=== PATIENT | female | born 1935 | race Caucasian/White ===

== ENCOUNTER 2018-07-24 20:05 | Inpatient (IN) ==
[2018-07-24] MEDS ORDERED: Ondansetron ODT 4 MG TAB.RAPDIS SL ONE (20:37)
[2018-07-24] MEDS ORDERED: Isovue-370 500 ML BOTTLE IVP ONE (20:39)
--- NOTE | 2018-07-24 21:17 | Emergency Department Note ---
Disposition Clinical Impression: Partial small bowel obstruction, Hyperkalemia Disposition: Admitted As Inpatient Condition: Fair Time of Disposition: 00:36 General Adult HPI - General Chief complaint: ED Nausea/Vomiting/Diarrhea Stated complaint: Vomiting Time Seen by Provider: 07/24/18 20:31 Source: patient, EMS Mode of arrival: EMS Limitations: no limitations Nursing Notes Reviewed: Yes Vital Signs Reviewed: Yes - History of Present Illness HPI Narrative: Pt is an 82F resident of a SNF for chronic pain that presents with acute development of nausea and vomiting since yesterday. She states that she has had these symptoms since last night. She states she has vomited approximately 10-20 times, but denies any presence of blood in her vomit, although she states that it is dark. She currently has a colostomy, which she has had since 1988, and states that there has been no change in the output from her colostomy. She states that her last episode of vomiting was this morning. She is denying fevers, chills, abdominal pain, numbess, tingling, weakness. Pain Scale: 7 - Related Data Home Medications Medication Instructions Recorded Confirmed RX: Ascorbate Calcium [Vitamin C] 500 mg PO BID 12/24/16 07/25/18 RX: Calcium Carbonate/Vitamin D3 1 each PO DAILY 12/24/16 07/25/18 [Calcium 600 + Vit D Tablet] RX: Cranberry 450 mg PO QID 12/24/16 07/25/18 RX: Cyclosporine [Restasis] 1 each OP BID 12/24/16 07/25/18 RX: FentaNYL PATCH [Duragesic] 75 mcg TD Q72H 12/24/16 07/25/18 RX: Fluticasone Propionate 50 mcg IH DAILY 12/24/16 07/25/18 [Flovent Diskus] RX: HYDROmorphone [Dilaudid] 4 mg PO Q8H PRN 12/24/16 07/25/18 RX: Isosorbide MONOnitrate (24 HR) 90 mg PO DAILY 12/24/16 07/25/18 [Imdur] RX: Levothyroxine [Synthroid] 75 mcg PO 0630 12/24/16 07/25/18 RX: Losartan Potassium [Cozaar] 100 mg PO DAILY 12/24/16 07/25/18 RX: Omeprazole [PriLOSEC] 20 mg PO DAILY 12/24/16 07/25/18 RX: Potassium Chloride [Klor-Con 2 cap PO BID 12/24/16 07/25/18 10] RX: Pravastatin Sodium [Pravachol] 40 mg PO DAILY 12/24/16 07/25/18 RX: Vitamin E Acetate [Vitamin E] 1,000 unit PO DAILY 12/24/16 07/25/18 RX: cloNIDine HCl [CloNIDine HCl] 0.1 mg PO TID PRN 07/25/18 07/25/18 RX: hydrALAZINE [HydrALAZINE] 25 mg PO BID 07/25/18 07/25/18 Allergies Allergy/AdvReac Type Severity Reaction Status Date / Time aspirin Allergy Nausea Verified 11/29/16 01:48 Erythromycin Base Allergy Rash Verified 11/29/16 01:48 Penicillins Allergy Redness of Verified 11/29/16 01:48 Skin propoxyphene [From Darvon] Allergy Hallucinati Verified 11/29/16 01:48 ng Sulfa (Sulfonamide Allergy Redness of Verified 11/29/16 01:48 Antibiotics) Skin Constitutional: Denies: fever, chills Cardiovascular: Denies: chest pain, palpitations Respiratory: Denies: cough, dyspnea, wheezes Gastrointestinal: Reports: nausea, vomiting. Denies: abdominal pain, diarrhea, constipation Genitourinary: Denies: urgency, dysuria Musculoskeletal: Reports: neck pain (chronic). Denies: back pain Integumentary: Denies: rash, abrasion Neurological: Denies: headache, weakness Psychiatric: Denies: anxiety, depression Endocrine: Denies: fatigue, heat or cold intolerance Hematological/Lymphatic: Denies: easy bleeding, easy bruising Allergic/Immunologic: Denies: facial swelling, urticaria Past Medical History - Past Medical History Medical history: Reports: arthritis, cancer, CHF, coronary artery disease, GERD, hyperlipidemia, hypertension, liver disease, thyroid disease Surgical history: Reports: pacemaker/AICD Psychiatric history: Reports: no psych history DENTAL HYGIENE INSTRUCTOR history: Reports: no DENTAL HYGIENE INSTRUCTOR history - Social History Smoking Status: Never smoker Smokeless Tobacco Status: No Alcohol use: Reports: none Drug use: Reports: none Physical Exam General: A&O x 3. No acute distress. Well developed, well nourished. Head: atraumatic, normocephalic. ENT: No conjunctival injection, no scleral icterus. PERRLA. EOMI. Oropharynx non- erythematous. mucous membranes moist. Neuro: No focal deficits, no speech deficit, no facial droop, mentating well. BUE/BLE Str 5/5. Pulm: Lungs CTAB A/P. No wheezes, rales, ronchi. Cardio: RRR no m/r/g. Chest not tender to palpation. Abd: Colostomy bag in place on left side of abdomen. Abd soft, diffusely tender, but not rigid. No guarding. Normoactive bowel sounds. Extremities: Radial pulses 2+ laurita, dorsalis pedis/posterior tibialis 2+ laurita. No LE edema. No cyanosis, clubbing. Skin: warm, dry, intact. No rashes. Psych: Appropriate mood and affect. Answers questions appropriately. Cooperative with exam. - General Limitations: no limitations General appearance: alert, in no apparent distress Course Course Narrative: Will administer anti-emetic, obtain labs, obtain CT scan. - Reevaluation(s) Reevaluation #1: Potassium elevated at 5.8, but no EKG changes consistent with hyperkalemia. Time: 23:50 Vital Signs Temperature 99.0 F 07/24/18 20:31 Pulse Rate 78 07/24/18 20:31 Respiratory Rate 18 07/24/18 20:31 Blood Pressure 213/86 07/24/18 20:31 O2 Sat by Pulse Oximetry 98 07/24/18 20:31 Temperature 99.0 F 07/24/18 20:31 Pulse Rate 78 07/25/18 00:32 Respiratory Rate 16 07/25/18 00:32 Blood Pressure 178/79 07/25/18 00:32 O2 Sat by Pulse Oximetry 96 07/25/18 00:32 Oxygen Delivery Oxygen Delivery Room Air Medical Decision Making - MDM Narrative Medical decision making narrative: Pts lab work was concerning for hyperkalemia, but no EKG changes were noted consistent with hyperkalemia. CT showed concern for partial small bowel obstruction, so pt was admitted to hospitalist, Dr. Bland, for hyperkalemia and partial SBO. Pt was given 1L NaCl and albuterol in the department to help manage her potassium level with repeat BMP pending at time of disposition. Pt verbalized understanding and agreement with the plan to admit her. Pt was given an opportunity to ask questions and all of her concerns were addressed. Pt remained stable while in the department. - Medical Records Medical records reviewed: Yes I reviewed the patient's medical records. - Lab Data Lab results reviewed: Yes I reviewed the patient's lab results. Result diagrams: 07/24/18 22:14 07/25/18 00:28 Lab Results 07/24/18 07/24/18 07/24/18 Range/Units 21:04 21:04 21:47 WBC (4.3-11.1) K/mcL RBC (3.82-4.97) M/mcL Hgb (11.5-15.4) g/dL Hct (35.3-44.9) % MCV (83.0-100.0) fL MCH (28.0-33.3) pg MCHC (31.6-35.5) g/dL RDW (11.5-14.5) % Plt Count (140-400) K/mcL MPV (9.4-12.4) fL Immature Gran % (0-4) % Seg Neutrophils % % Lymphocytes % % Monocytes % % Eosinophils % % Basophils % % Neutrophils # (1.6-8.9) K/mcL Lymphocytes # (0.6-4.6) K/mcL Monocytes # (0.0-1.3) K/mcL Eosinophils # (0.0-0.6) K/mcL Basophils # (0.0-0.2) K/mcL Sodium 137 (136-145) mEq/L Potassium 5.8 H (3.5-5.1) mEq/L Chloride 104 (98-107) mEq/L Carbon Dioxide 24 (23-29) mEq/L BUN 23 (8-23) mg/dL Creatinine 1.12 (0.60-1.20) mg/dL Est GFR ( Amer) 56 L (> 60) Est GFR (Non-Af Amer) 46 L (> 60) BUN/Creatinine Ratio 21 (6-26) Glucose 146 H (70-105) mg/dL Calculated Osmolality 290 (280-300) Calcium 9.8 (8.6-10.3) mg/dL Total Bilirubin 0.7 (0.3-1.0) mg/dL AST 37 (13-39) Units/L ALT 15 (7-52) Units/L Alkaline Phosphatase 95 (34-104) Units/L Serum Total Protein 7.7 (6.4-8.9) g/dL Albumin 4.3 (3.5-5.7) g/dL Globulin 3.4 (2.4-3.5) g/dL Albumin/Globulin Ratio 1.3 (1.1-2.2) Lipase 5 L (11-82) Units/L Urine Color Yellow (Yellow) Urine Clarity Clear (Clear) Urine pH 6.0 (5.0-8.0) pH Units Ur Specific [place] 1.018 (1.010-1.025) Urine Protein Trace (Neg-Trace) mg/dL Urine Glucose (UA) Normal (Normal) mg/dL Urine Ketones Trace H (Negative) mg/dL Urine Blood Trace H (Negative) Urine Nitrite Negative (Negative) Urine Bilirubin Negative (Negative) Urine Urobilinogen Normal (Normal) mg/dL Ur Leukocyte Esterase Negative (Negative) Urine Microscopic RBC 5-15 H (0-3) per hpf Urine Microscopic WBC 0-3 (0-3) per hpf Ur Squamous Epith Cells Few (None-Few) per lpf Urine Bacteria None Seen (None-Few) per hpf Hyaline Casts None Seen (None-Few) per lpf Ur Culture Indicated? NO (NO) Specimen Rejected Clotted 07/24/18 Range/Units 22:14 WBC 5.0 (4.3-11.1) K/mcL RBC 4.70 (3.82-4.97) M/mcL Hgb 13.9 (11.5-15.4) g/dL Hct 42.3 (35.3-44.9) % MCV 90.0 (83.0-100.0) fL MCH 29.6 (28.0-33.3) pg MCHC 32.9 (31.6-35.5) g/dL RDW 13.2 (11.5-14.5) % Plt Count 143 (140-400) K/mcL MPV 10.4 (9.4-12.4) fL Immature Gran % 0.2 (0-4) % Seg Neutrophils % 86.2 % Lymphocytes % 7.2 % Monocytes % 6.2 % Eosinophils % 0.0 % Basophils % 0.2 % Neutrophils # 4.3 (1.6-8.9) K/mcL Lymphocytes # 0.4 L (0.6-4.6) K/mcL Monocytes # 0.3 (0.0-1.3) K/mcL Eosinophils # 0.0 (0.0-0.6) K/mcL Basophils # 0.0 (0.0-0.2) K/mcL Sodium (136-145) mEq/L Potassium (3.5-5.1) mEq/L Chloride (98-107) mEq/L Carbon Dioxide (23-29) mEq/L BUN (8-23) mg/dL Creatinine (0.60-1.20) mg/dL Est GFR ( Amer) (> 60) Est GFR (Non-Af Amer) (> 60) BUN/Creatinine Ratio (6-26) Glucose (70-105) mg/dL Calculated Osmolality (280-300) Calcium (8.6-10.3) mg/dL Total Bilirubin (0.3-1.0) mg/dL AST (13-39) Units/L ALT (7-52) Units/L Alkaline Phosphatase (34-104) Units/L Serum Total Protein (6.4-8.9) g/dL Albumin (3.5-5.7) g/dL Globulin (2.4-3.5) g/dL Albumin/Globulin Ratio (1.1-2.2) Lipase (11-82) Units/L Urine Color (Yellow) Urine Clarity (Clear) Urine pH (5.0-8.0) pH Units Ur Specific [place] (1.010-1.025) Urine Protein (Neg-Trace) mg/dL Urine Glucose (UA) (Normal) mg/dL Urine Ketones (Negative) mg/dL Urine Blood (Negative) Urine Nitrite (Negative) Urine Bilirubin (Negative) Urine Urobilinogen (Normal) mg/dL Ur Leukocyte Esterase (Negative) Urine Microscopic RBC (0-3) per hpf Urine Microscopic WBC (0-3) per hpf Ur Squamous Epith Cells (None-Few) per lpf Urine Bacteria (None-Few) per hpf Hyaline Casts (None-Few) per lpf Ur Culture Indicated? (NO) Specimen Rejected - Radiology Data Radiology results reviewed: Yes I reviewed the patient's radiology results. Abdomen/Pelvis CT 07/24/18 20:39 IMPRESSION: Mild to moderate dilation of the small bowel suspicious for partial small bowel obstruction likely related to adhesions Left lower quadrant colostomy and sigmoid colon resection are again noted Cholecystectomy D/ / Marek Poole MD / Marek Poole MD Interpreting Provider: Marek Poole MD - EKG Data EKG #1 EKG attestation: Yes I reviewed and interpreted this EKG. EKG results narrative: HR 84, rhythm atrial paced, axis left. ID [id number], QRS 95, QTc 476. No evidence of ST elevation or depression. No evidence of peaked T-waves. No evidence of QRS lengthening. Left axis deviation also on previous study from 11/28/16. Attestation Statement - Attestation Attestation: Resident Attestation: I examined this patient and my medical decision making was reviewed with the Resident Physician. I agree with the documented findings, disposition and treatment plan as described except to the extent set forth below. We independently had [id number] contact with the patient. Patient with multiple abdominal surgeries in the past including cholecystectomy, hysterectomy, colostomy, appendectomy presenting for evaluation of what she describes 20 episodes of vomiting. The patient will undergo further evaluation for underlying abdominal pathology. Overall abdomen is soft nontender palpation without guarding or rebound. Patient CT scan concerning for partial small bowel obstruction. Patient received initial sublingual Zofran has had no further episodes of vomiting. Further Zofran will be given. I do not believe an NG tube needs to be placed at this time. Patient's symptoms worsen and NG tube can be placed for symptom relief however currently under control.
[2018-07-24 21:44] LABS: Albumin 4.3 g/dL (3.5-5.7); Albumin/Globulin Ratio 1.3 (1.1-2.2); Bilirubin,Total 0.7 mg/dL (0.3-1.0); Calcium 9.8 mg/dL (8.6-10.3); Globulin 3.4 g/dL (2.4-3.5); Potassium 5.8 mEq/L (3.5-5.1); Total Protein 7.7 g/dL (6.4-8.9)
[2018-07-24 22:01] LABS: Bilirubin,Urine Negative (Negative); Blood,Urine Trace (Negative); Clarity,Urine Clear (Clear); Color,Urine Yellow (Yellow); Glucose,Urine (UA) Normal (Normal); Ketones,Urine Trace mg/dL (Negative); Leukocyte Esterase,Urine Negative (Negative); Nitrite,Urine Negative (Negative); Protein,Urine Trace mg/dL (Neg-Trace); Specific Gravity,Urine 1.018 (1.010-1.025); Urobilinogen,Urine Normal (Normal)
[2018-07-24 22:04] LABS: Bacteria,Urine None Seen per hpf (None-Few); Hyaline Casts,Urine None Seen per lpf (None-Few); Squamous Epithelial Cell,Urine Few per lpf (None-Few); WBC,Urine 0-3 per hpf (0-3)
[2018-07-24 22:34] LABS: Basophils % 0.2 %; Hematocrit 42.3 % (35.3-44.9); Hemoglobin 13.9 g/dL (11.5-15.4); Immature Granulocytes % 0.2 % (0-4); Lymphocytes # 0.4 K/mcL (0.6-4.6); Lymphocytes % 7.2 %; Mean Corpuscular HGB Conc 32.9 g/dL (31.6-35.5); Mean Corpuscular Hemoglobin 29.6 pg (28.0-33.3); Mean Platelet Volume 10.4 fL (9.4-12.4); Monocytes # 0.3 K/mcL (0.0-1.3); Monocytes % 6.2 %; Neutrophils # 4.3 K/mcL (1.6-8.9); Platelet Count 143 K/mcL (140-400); Red Cell Distribution Width 13.2 % (11.5-14.5); Segmented Neutrophils % 86.2 %
[2018-07-24] MEDS ORDERED: 0.9 % Sodium Chloride 1,000 ML IVC ONE (23:06)
[2018-07-25] MEDS ORDERED: Albuterol 2.5 MG/3 ML NEBULIZER IH ONE (00:09)
[2018-07-25] MEDS ORDERED: Ondansetron 4 MG/2 ML VIAL IVP ONE (00:35)
[2018-07-25 00:56] LABS: Calcium 9.1 mg/dL (8.6-10.3); Potassium 4.2 mEq/L (3.5-5.1)
--- NOTE | 2018-07-25 03:53 | Internal Med History&Physical ---
Date of Encounter: 07/25/18 Time of Encounter: 03:51 Internal Medicine - H&P: HPI History of present illness: Ms. Bolanos is a 82 year old female with a past medical history of hypertension, hyperlipidemia, history of colon cancer, hypothyroidism, chronic lower extremity edema, chronic abdominal pain history of blood clots who presented to the ED with a chief complaint of nausea and vomiting which began yesterday. Patient reports vomiting approximately 10-20 times consisting of nonbloody nonbilious emesis. Patient denies any fever or chills, abdominal pain, numbness tingling or weakness. On arrival patient was afebrile, however noted to be hypertensive with a blood pressure of 213/86. Labs were notable only for hyperkalemia 5.8. CT scan of the belly showed mild to moderate dilatation of the small bowel suspicious for partial small bowel obstruction likely related to adhesions. P atient received fluids and antibiotics in the ED. NG tube was not placed as patient's vomiting has seen to subside. Past Med Surg Social Fam HX - Past Medical History Medical history: arthritis, cancer, CHF, coronary artery disease, GERD, hyperlipidemia, hypertension, liver disease, thyroid disease Additional medical history: COLON CANCER Psychiatric history: no psych history - Past Surgical History Surgical History: pacemaker/AICD Additional surgical history: BACK SURGERY. EAR SURGERY. SHOULDER SURGERY - Social History Smoking Status: Never smoker Smokeless Tobacco Status: No Alcohol use: none Drug use: none - Family History Father Living Status: Hx Family Endocrine Disorder: Yes Internal Medicine - H&P: Meds Ascorbate Calcium [Vitamin C] 500 mg PO BID 12/24/16 [History] Calcium Carbonate/Vitamin D3 [Calcium 600 + Vit D Tablet] 1 each PO DAILY 12/24/16 [History] Cranberry 450 mg PO QID 12/24/16 [History] Cyclosporine [Restasis] 1 each OP BID 12/24/16 [History] FentaNYL PATCH [Duragesic] 75 mcg TD Q72H 12/24/16 [History] Fluticasone Propionate [Flovent Diskus] 50 mcg IH DAILY 12/24/16 [History] HYDROmorphone [Dilaudid] 4 mg PO Q8H PRN 12/24/16 [History] Isosorbide MONOnitrate (24 HR) [Imdur] 90 mg PO DAILY 12/24/16 [History] Levothyroxine [Synthroid] 75 mcg PO 0630 12/24/16 [History] Losartan Potassium [Cozaar] 100 mg PO DAILY 12/24/16 [History] Omeprazole [PriLOSEC] 20 mg PO DAILY 12/24/16 [History] Potassium Chloride [Klor-Con 10] 2 cap PO BID 12/24/16 [History] Pravastatin Sodium [Pravachol] 40 mg PO DAILY 12/24/16 [History] Vitamin E Acetate [Vitamin E] 1,000 unit PO DAILY 12/24/16 [History] cloNIDine HCl [CloNIDine HCl] 0.1 mg PO TID PRN 07/25/18 [History] hydrALAZINE [HydrALAZINE] 25 mg PO BID 07/25/18 [History] Allergy/AdvReac Type Severity Reaction Status Date / Time aspirin Allergy Nausea Verified 11/29/16 01:48 Erythromycin Base Allergy Rash Verified 11/29/16 01:48 Penicillins Allergy Redness of Verified 11/29/16 01:48 Skin propoxyphene [From Darvon] Allergy Hallucinati Verified 11/29/16 01:48 ng Sulfa (Sulfonamide Allergy Redness of Verified 11/29/16 01:48 Antibiotics) Skin All Systems PM: A 10-system review of systems was performed and is negative for pertinent findings except as documented above in the HPI. - Constitutional Constitutional: no chills, no fever(s), no night sweats - EENT Eyes: no change in vision, no discharge, no pain, no photophobia Ears: no ear discharge, no ear pain, no tinnitus Nose, mouth and throat: no dysphagia, no nasal discharge, no neck pain, no sore throat - Cardiovascular Cardiovascular ROS IM: no chest pain, no diaphoresis, no dyspnea, no lightheadedness, no palpitations, no syncope - Respiratory Respiratory: no cough, no dyspnea, no wheezing, no excessive phlegm production - Gastrointestinal Gastrointestinal: no abdominal pain, no diarrhea, no hematemesis, no hematochezia, no melena, no nausea, no vomiting - Genitourinary Genitourinary: no change in urinary stream, no dysuria, no flank pain, no he maturia - Musculoskeletal Musculoskeletal ROS IM: no numbness, no tingling - Integumentary Integumentary IM: no rash, no unusual bruising - Neurological Neurological ROS: no confusion, no convulsions, no focal weakness, no numbness, no tingling, no tremor(s) - Hematologic/Lymphatic Hematologic/Lymphatic: no easy bruising - Constitutional Vitals: Temp Pulse Resp BP Pulse Ox 98.7 F 89 14 185/78 96 07/25/18 02:06 07/25/18 02:06 07/25/18 02:06 07/25/18 02:06 07/25/18 02:06 Exam: General: Alert and oriented Skin:Normal color, no rash, no lesions. HEENT:EOM, pupils equal, round and reactive. Cardiovascular:Normal S1 & S2, no rubs, murmurs or gallops. No JVD. Pulse regular. Lungs:Normal breath sounds, no wheezes or crackles. Abdomen:Soft, non-tender, no rigidity. Extremities:No deformity, no edema or tenderness, no joint swelling or clubbing. Neurological:Normal cognition and motor skills. Pulses:Carotid and radial pulses normal +2. Rest of the physical exam is non contributory Internal Med - H&P Results - Labs CBC & Chem 7: 07/24/18 22:14 07/25/18 00:28 Labs: Short CBC 07/24/18 Range/Units 22:14 WBC 5.0 (4.3-11.1) K/mcL Hgb 13.9 (11.5-15.4) g/dL Hct 42.3 (35.3-44.9) % Plt Count 143 (140-400) K/mcL Neutrophils # 4.3 (1.6-8.9) K/mcL BMP 07/24/18 07/25/18 21:04 00:28 Sodium 137 140 Potassium 5.8 H 4.2 D Chloride 104 107 Carbon Dioxide 24 26 BUN 23 23 Creatinine 1.12 1.09 Glucose 146 H 135 H Calcium 9.8 9.1 Liver Function 07/24/18 Range/Units 21:04 Total Bilirubin 0.7 (0.3-1.0) mg/dL AST 37 (13-39) Units/L ALT 15 (7-52) Units/L Alkaline Phosphatase 95 (34-104) Units/L Albumin 4.3 (3.5-5.7) g/dL Urine 07/24/18 Range/Units 21:47 Urine Color Yellow (Yellow) Urine Clarity Clear (Clear) Urine pH 6.0 (5.0-8.0) pH Units Ur Specific [place] 1.018 (1.010-1.025) Urine Protein Trace (Neg-Trace) mg/dL Urine Glucose (UA) Normal (Normal) mg/dL - Impressions ITS Impressions Abdomen/Pelvis CT 07/24/18 20:39 IMPRESSION: Mild to moderate dilation of the small bowel suspicious for partial small bowel obstruction likely related to adhesions Left lower quadrant colostomy and sigmoid colon resection are again noted Cholecystectomy D/ / Marek Poole MD / Marek Poole MD Interpreting Provider: Marek Poole MD - Assessment and Plan (1) Hyperkalemia Current Visit: Yes Status: Acute Assessment and plan: Patient presents with some potassium of 5.8. Hyperkalemia seems to have resolved after receiving fluids. We will monitor for now. (2) Partial small bowel obstruction Current Visit: Yes Status: Acute Assessment and plan: Patient presents with intractable nausea and vomiting. CT scan shows mild to moderate dilatation of small bowel suspicious for partial obstruction likely related to adhesions. This in the setting of previous history of colon cancer status post colectomy. NG tube deferred as patient's vomiting appears so subsided. -We will keep patient nothing by mouth -We will consider placement of NG tube if patient's begins to vomit again -Surgery consult (3) DVT prophylaxis Current Visit: Yes Status: Acute Assessment and plan: subCutaneous heparin - Time Spent With Patient Total time spent is greater than 50% in coordination of care (as documented) at patient's floor/unit and/or counseling patient:
[2018-07-25] MEDS ORDERED: Naloxone 0.4 MG/ML INJ IVP PRN (04:02)
[2018-07-25] MEDS: Ondansetron 4 MG/2 ML VIAL IVP PRN (04:35)
[2018-07-25] MEDS: 0.9 % Sodium Chloride 1,000 ML IVC SCH ×2 (04:35→18:36)
[2018-07-25] MEDS: *HR* Heparin 5,000 UNIT/ML VIAL SQ SCH ×3 (05:55→20:43)
[2018-07-25] MEDS ORDERED: cloNIDine HCl 0.1 MG TABLET PO PRN (08:23)
--- NOTE | 2018-07-25 09:41 | Event Note ---
Date of Encounter: 07/25/18 Time of Encounter: 09:38 Patient seen and examined earlier this am Currently she cont to have abd pain and vomiting green Bile - NG was placed - dark green aprox 100ml in return . Surgery consulted appreciate recommendations
[2018-07-25] MEDS: hydrALAZINE 25 MG TABLET PO SCH ×2 (11:15→20:43)
[2018-07-25] MEDS: Isosorbide MONOnitrate (24 HR) 30 MG TAB.ER.24H PO SCH (11:16)
--- NOTE | 2018-07-25 12:38 | AcuteCare Surgery Consult Note ---
Date of Encounter: 07/25/18 Time of Encounter: 09:30 Assessment and Plan (1) Partial small bowel obstruction Current Visit: Yes Status: Acute Recommend conservative therapy with IVF/NGT/NPO. Will obtain gastrograffin SB series prior to advancing diet. (2) HTN (hypertension) Current Visit: No Status: Chronic stable, hospitalist to manage Qualifiers: Hypertension type: essential hypertension Qualified Code(s): I10 - Essential (primary) hypertension History of Present Illness Consult date: 07/25/18 Reason for consult: abdominal pain (nausea and vomiting) Requesting physician: Dameon Max History of present illness: This 82 y/o female presents to [facility] ED c/o intractible nausea and vomiting. She reports the n/v subsided when the NGT was placed. She reports abdominal pain but, not severe. She reports normal functioning of colostomy however, there is minimal stool and gas in colostomy bag, currently. She denies fever. She denies chest pain of SOB. Past Med Surg Social Fam HX - Past Medical History Medical history: arthritis, cancer, CHF, coronary artery disease, GERD, hyperlipidemia, hypertension, liver disease, thyroid disease Additional medical history: COLON CANCER Psychiatric history: no psych history - Past Surgical History Surgical History: pacemaker/AICD Additional surgical history: BACK SURGERY. EAR SURGERY. SHOULDER SURGERY - Social History Smoking Status: Never smoker Smokeless Tobacco Status: No Alcohol use: none Drug use: none - Family History Father Living Status: Hx Family Endocrine Disorder: Yes Medications and Allergies Ascorbate Calcium [Vitamin C] 500 mg PO BID 12/24/16 [History] Calcium Carbonate/Vitamin D3 [Calcium 600 + Vit D Tablet] 1 each PO DAILY 12/24/16 [History] Cranberry 450 mg PO QID 12/24/16 [History] Cyclosporine [Restasis] 1 each OP BID 12/24/16 [History] FentaNYL PATCH [Duragesic] 75 mcg TD Q72H 12/24/16 [History] Fluticasone Propionate [Flovent Diskus] 50 mcg IH DAILY 12/24/16 [History] HYDROmorphone [Dilaudid] 4 mg PO Q8H PRN 12/24/16 [History] Isosorbide MONOnitrate (24 HR) [Imdur] 90 mg PO DAILY 12/24/16 [History] Levothyroxine [Synthroid] 75 mcg PO 30 12/24/16 [History] Losartan Potassium [Cozaar] 100 mg PO DAILY 12/24/16 [History] Omeprazole [PriLOSEC] 20 mg PO DAILY 12/24/16 [History] Potassium Chloride [Klor-Con 10] 2 cap PO BID 12/24/16 [History] Pravastatin Sodium [Pravachol] 40 mg PO DAILY 12/24/16 [History] Vitamin E Acetate [Vitamin E] 1,000 unit PO DAILY 12/24/16 [History] cloNIDine HCl [CloNIDine HCl] 0.1 mg PO TID PRN 07/25/18 [History] hydrALAZINE [HydrALAZINE] 25 mg PO BID 07/25/18 [History] Allergy/AdvReac Type Severity Reaction Status Date / Time aspirin Allergy Nausea Verified 11/29/16 01:48 Erythromycin Base Allergy Rash Verified 11/29/16 01:48 Penicillins Allergy Redness of Verified 11/29/16 01:48 Skin propoxyphene [From Darvon] Allergy Hallucinati Verified 11/29/16 01:48 ng Sulfa (Sulfonamide Allergy Redness of Verified 11/29/16 01:48 Antibiotics) Skin Review of Systems All systems PM: The remainder of the systems were reviewed and are negative - Constitutional as per HPI, anorexia, fatigue, weakness, no chills, no fever(s), no night sweats - EENT Nose, mouth and throat: dry mouth, no dysphagia, no nasal congestion, no nasal discharge, no sinus pain, no sinus pressure, no sore throat - Cardiovascular no dyspnea, no edema - Respiratory no cough, no dyspnea, no wheezing - Gastrointestinal abdominal pain, bloating, cramping, nausea, vomiting, no belching, no change in stool character, no coffee ground emesis, no hematemesis, no hematochezia - Genitourinary Genitourinary: no difficulty voiding, no dysuria, no urinary frequency - Musculoskeletal back pain, no joint swelling, no limited range of motion, no neck pain - Integumentary dry skin, no pruritus, no rash, no wounds, no jaundice - Neurological weakness, no dizziness, no focal weakness - Endocrine fatigue - Hematologic/Lymphatic no easy bleeding, no easy bruising General Surgery Exam Initial Vital Signs Temp Pulse Resp BP Pulse Ox 99.0 F 78 18 213/86 98 07/24/18 20:31 07/24/18 20:31 07/24/18 20:31 07/24/18 20:31 07/24/18 20:31 - General physical appearance no distress, no pain. negative: jaundice - Eyes PERRL, normal ocular movement. negative: icteric - ENT no congestion, dry mucosa. negative: nasal discharge - Neck no masses, no lymphadectomy, no venous distension - Respiratory normal respiratory effort, clear to auscultation - Cardiovascular Cardiovascular exam: Present: RRR. Absent: murmurs - Abdomen Abdomen general surgery: Present: bowel sounds present (hypoactive), soft, dis tended, tender. Absent: guarding, rebound - Genitourinary Present: normal external genitalia - Integumentary Integumentary general surgery: Present: warm and dry. Absent: rash - Neurologic Present: CN 2-12 grossly intact, normal coordination - Musculoskeletal Present: normal posture - Psychiatric Psychiatric general surgery: Present: A&Ox3, appropriate Exam Initial Vital Signs Temp Pulse Resp BP Pulse Ox 99.0 F 78 18 213/86 98 07/24/18 20:31 07/24/18 20:31 07/24/18 20:31 07/24/18 20:31 07/24/18 20:31 Results - Labs 07/24/18 22:14 07/25/18 00:28 Abnormal lab results Lymphocytes # 0.4 K/mcL (0.6-4.6) L 07/24/18 22:14 Est GFR ( Amer) 58 (> 60) L 07/25/18 00:28 Est GFR (Non-Af Amer) 48 (> 60) L 07/25/18 00:28 Glucose 135 mg/dL (70-105) H 07/25/18 00:28 Lipase 5 Units/L (11-82) L 07/24/18 21:04 Urine Ketones Trace mg/dL (Negative) H 07/24/18 21:47 Urine Blood Trace (Negative) H 07/24/18 21:47 Urine Microscopic RBC 5-15 per hpf (0-3) H 07/24/18 21:47 Diabetes panel 07/24/18 07/25/18 Range/Units 21:04 00:28 Sodium 137 140 (136-145) mEq/L Potassium 5.8 H 4.2 D (3.5-5.1) mEq/L Chloride 104 107 (98-107) mEq/L Carbon Dioxide 24 26 (23-29) mEq/L BUN 23 23 (8-23) mg/dL Creatinine 1.12 1.09 (0.60-1.20) mg/dL Glucose 146 H 135 H (70-105) mg/dL Calcium 9.8 9.1 (8.6-10.3) mg/dL AST 37 (13-39) Units/L ALT 15 (7-52) Units/L Alkaline Phosphatase 95 (34-104) Units/L Albumin 4.3 (3.5-5.7) g/dL Calcium panel 07/24/18 07/25/18 Range/Units 21:04 00:28 Calcium 9.8 9.1 (8.6-10.3) mg/dL Albumin 4.3 (3.5-5.7) g/dL Pituitary panel 07/24/18 07/25/18 Range/Units 21:04 00:28 Sodium 137 140 (136-145) mEq/L Potassium 5.8 H 4.2 D (3.5-5.1) mEq/L Chloride 104 107 (98-107) mEq/L Carbon Dioxide 24 26 (23-29) mEq/L BUN 23 23 (8-23) mg/dL Creatinine 1.12 1.09 (0.60-1.20) mg/dL Glucose 146 H 135 H (70-105) mg/dL Calcium 9.8 9.1 (8.6-10.3) mg/dL Adrenal panel 07/24/18 07/25/18 Range/Units 21:04 00:28 Sodium 137 140 (136-145) mEq/L Potassium 5.8 H 4.2 D (3.5-5.1) mEq/L Chloride 104 107 (98-107) mEq/L Carbon Dioxide 24 26 (23-29) mEq/L BUN 23 23 (8-23) mg/dL Creatinine 1.12 1.09 (0.60-1.20) mg/dL Glucose 146 H 135 H (70-105) mg/dL Calcium 9.8 9.1 (8.6-10.3) mg/dL Total Bilirubin 0.7 (0.3-1.0) mg/dL AST 37 (13-39) Units/L ALT 15 (7-52) Units/L Alkaline Phosphatase 95 (34-104) Units/L Albumin 4.3 (3.5-5.7) g/dL All other labs normal. - Imaging CT scan - abdomen: image reviewed (Dilated SB) CT scan - pelvis: image reviewed Consult Discharge Plan - Plan Referrals: Yumiko Parra MD [Partnered Physician] -
[2018-07-25] MEDS ORDERED: Acetaminophen IV 1,000 MG/100 ML INFUS..BTL IVPB ONE (21:10)
[2018-07-26] MEDS: *HR* Heparin 5,000 UNIT/ML VIAL SQ SCH ×3 (04:41→20:35)
[2018-07-26 05:39] LABS: Basophils % 0.5 %; Eosinophils % 0.5 %; Hematocrit 35.8 % (35.3-44.9); Lymphocytes # 1.2 K/mcL (0.6-4.6); Lymphocytes % 30.3 %; Mean Corpuscular HGB Conc 32.7 g/dL (31.6-35.5); Mean Corpuscular Hemoglobin 29.6 pg (28.0-33.3); Mean Corpuscular Volume 90.6 fL (83.0-100.0); Mean Platelet Volume 9.7 fL (9.4-12.4); Monocytes # 0.5 K/mcL (0.0-1.3); Monocytes % 11.6 %; Neutrophils # 2.3 K/mcL (1.6-8.9); Platelet Count 122 K/mcL (140-400); Red Blood Count 3.95 M/mcL (3.82-4.97); Red Cell Distribution Width 13.4 % (11.5-14.5); Segmented Neutrophils % 57.1 %
[2018-07-26 05:42] LABS: Hemoglobin 11.7 g/dL (11.5-15.4)
[2018-07-26 05:49] LABS: INR 1.1; Prothrombin Time 12.7 Seconds (9.4-12.1)
[2018-07-26 05:53] LABS: Activated Partial Thrombo Time 28.4 Seconds (26.0-36.0)
[2018-07-26 05:58] LABS: Albumin 3.2 g/dL (3.5-5.7); Albumin/Globulin Ratio 1.2 (1.1-2.2); Bilirubin,Total 0.5 mg/dL (0.3-1.0); Calcium 8.7 mg/dL (8.6-10.3); Globulin 2.6 g/dL (2.4-3.5); Magnesium 1.8 mg/dL (1.6-2.6); Potassium 3.5 mEq/L (3.5-5.1); Total Protein 5.8 g/dL (6.4-8.9)
[2018-07-26] MEDS: hydrALAZINE 25 MG TABLET PO SCH ×2 (07:41→20:31)
[2018-07-26] MEDS: Isosorbide MONOnitrate (24 HR) 30 MG TAB.ER.24H PO SCH (07:42)
--- NOTE | 2018-07-26 09:37 | Internal Med Progress Note ---
Hospitalist Progress Note - Encounter Date of Encounter: 07/26/18 Time of Encounter: 09:37 - Subjective Interval History: Seen and examined at bedside Denies any pain or discomfort . NG draining dark fluid- denies any flatus- seen by surgery and appreciate recommendations - Exam Vitals: Temp Pulse Resp BP Pulse Ox 98.2 F 67 16 187/75 97 07/26/18 07:16 07/26/18 07:16 07/26/18 07:16 07/26/18 07:16 07/26/18 07:16 Exam: General: Alert and oriented Skin:Normal color, no rash, no lesions. HEENT:EOM, pupils equal, round and reactive. Cardiovascular:Normal S1 & S2, no rubs, murmurs or gallops. No JVD. Pulse regular. Lungs:Normal breath sounds, no wheezes or crackles. Abdomen:Soft, non-tender, no rigidity. NG placed with dark drainage Extremities:No deformity, no edema or tenderness, no joint swelling or clubbing. Neurological:Normal cognition and motor skills. Pulses:Carotid and radial pulses normal +2. Rest of the physical exam is non contributory - Assessment and Plan (1) Partial small bowel obstruction Current Visit: Yes Status: Acute Assessment and Plan: Patient presents with intractable nausea and vomiting. CT scan shows mild to moderate dilatation of small bowel suspicious for partial obstruction likely related to adhesions. This in the setting of previous history of colon cancer status post colectomy. -We will keep patient nothing by mouth -NG placed - dark drainage Protonix IV -Surgery consulted - recommending small bowel follow through (2) Hyperkalemia Current Visit: Yes Status: Acute Assessment and Plan: resolved cont to monitor (3) DVT prophylaxis Current Visit: Yes Status: Acute Assessment and Plan: subCutaneous heparin - Time Spent with Patient Total time spent is greater than 50% in coordination of care (as documented) at patient's floor/unit and/or counseling patient: Internal Medicine: Result - Labs CBC & Chem 7: 07/26/18 05:27 07/26/18 05:27 Labs: Short CBC 07/26/18 Range/Units 05:27 WBC 4.1 L (4.3-11.1) K/mcL Hgb 11.7 D (11.5-15.4) g/dL Hct 35.8 (35.3-44.9) % Plt Count 122 L (140-400) K/mcL Neutrophils # 2.3 (1.6-8.9) K/mcL BMP 07/26/18 05:27 Sodium 143 Potassium 3.5 Chloride 109 H Carbon Dioxide 26 BUN 29 H Creatinine 1.06 Glucose 83 Calcium 8.7 Liver Function 07/26/18 Range/Units 05:27 Total Bilirubin 0.5 (0.3-1.0) mg/dL AST 16 (13-39) Units/L ALT 10 (7-52) Units/L Alkaline Phosphatase 67 (34-104) Units/L Albumin 3.2 L (3.5-5.7) g/dL - ABG Interpretation ABG results: PT/INR, D-dimer PT 12.7 Seconds (9.4-12.1) H 07/26/18 05:27 - Impressions Impressions Abdomen/Pelvis CT 07/24/18 20:39 IMPRESSION: Mild to moderate dilation of the small bowel suspicious for partial small bowel obstruction likely related to adhesions. Left lower quadrant colostomy and sigmoid colon resection are again noted. Cholecystectomy. D/ / 07/25/2018 07:02:44 Marek Poole MD / bcarter Interpreting Provider: Marek Poole MD X-Ray 07/25/18 11:11 IMPRESSION: Enteric tube has been placed with tip located to the proximal body/fundus of the stomach and side-port in the proximal body of the stomach. D/ / Luis Sherwood MD / Luis Sherwood MD Interpreting Provider: Luis Sherwood MD Consult Discharge Plan - Plan Referrals: Yumiko Parra MD [Partnered Physician] - 08/02/18 10:45 am
--- NOTE | 2018-07-26 10:40 | AcuteCareSurgery Progress Note ---
Date of Encounter: 07/26/18 Time of Encounter: 15:00 - Assessment and Plan (1) Partial small bowel obstruction Current Visit: Yes Status: Acute The patient has high-grade partial bowel obstruction with a greater than 41 ratio between the proximal and distal small bowel. Although her symptoms are resolving with nasogastric tube drainage does not have any flatus. I have recommended Gastrografin small bowel follow-through to rule out complete obstruction into identify any surgical lesions. Clint Oneill MD [facility] Subjective Narrative: The patient is seen and evaluated on morning rounds with the acute care surgery team the patient has a previous history of abdominal colectomy times 2 and a personal history of colon cancer. She now presents with CAT scan evidence of small bowel obstruction as well as nausea and vomiting. A nasogastric tube was placed yesterday and the patient has had over 700 mL of nasogastric tube drainage. Her abdomen is soft and flat. She does have bowel sounds. She does not report any flatus. She does report that her abdominal discomfort is improved. She now presents for Gastrografin follow-through Objective Vital Signs - Last 8 Hours Temp Pulse Resp BP Pulse Ox 07/26/18 07:16 98.2 F 67 16 187/75 97 07/26/18 03:00 97.7 F 67 16 162/88 97 Intake and Output 07/25/18 07/26/18 07/26/18 23:59 07:59 15:59 Intake Total 1100 / 1100 1000 / 1000 Output Total 400 / 400 Balance 700 / 700 1000 / 1000 Intake: IV Fluids 1100 / 1100 1000 / 1000 0.9 % Sodium Chloride 1,000 ML 1000 / 1000 1000 / 1000 @ 75 mls/hr IVC .[id number] [facility] Rx #:[id number] Ofirmev 1,000 mg/100 ml 1,000 100 / 100 mg In 100 ml @ 400 mls/hr IVPB ONCE ONE Rx#:[id number] Output: Urine 300 / 300 Gastric Drainage 100 / 100 Left Nare 100 / 100 Other: Weight 69.3 kg Blood Glucose* 79 Patient Weight 07/26/18 23:59 Weight 69.3 kg - General physical appearance well developed, well nourished - Neck Neck exam: no masses, trachea midline, no lymphadectomy - Respiratory normal expansion, normal respiratory effort, clear to percussion, clear to auscultation - Cardiovascular Cardiovascular exam: Present: RRR, no murmurs/rubs/gallops - Abdomen Abdomen: Present: bowel sounds present, soft, non tender (Hypoactive bowel sounds) - Integumentary no rash, no growths, no abnormal pigmentation - Neurologic normal coordination, normal sensation - Labs 07/26/18 05:27 07/26/18 05:27 Diabetes panel 07/26/18 Range/Units 05:27 Sodium 143 (136-145) mEq/L Potassium 3.5 (3.5-5.1) mEq/L Chloride 109 H (98-107) mEq/L Carbon Dioxide 26 (23-29) mEq/L BUN 29 H (8-23) mg/dL Creatinine 1.06 (0.60-1.20) mg/dL Glucose 83 (70-105) mg/dL Calcium 8.7 (8.6-10.3) mg/dL AST 16 (13-39) Units/L ALT 10 (7-52) Units/L Alkaline Phosphatase 67 (34-104) Units/L Albumin 3.2 L (3.5-5.7) g/dL Calcium panel 07/26/18 Range/Units 05:27 Calcium 8.7 (8.6-10.3) mg/dL Albumin 3.2 L (3.5-5.7) g/dL Pituitary panel 07/26/18 Range/Units 05:27 Sodium 143 (136-145) mEq/L Potassium 3.5 (3.5-5.1) mEq/L Chloride 109 H (98-107) mEq/L Carbon Dioxide 26 (23-29) mEq/L BUN 29 H (8-23) mg/dL Creatinine 1.06 (0.60-1.20) mg/dL Glucose 83 (70-105) mg/dL Calcium 8.7 (8.6-10.3) mg/dL Adrenal panel 07/26/18 Range/Units 05:27 Sodium 143 (136-145) mEq/L Potassium 3.5 (3.5-5.1) mEq/L Chloride 109 H (98-107) mEq/L Carbon Dioxide 26 (23-29) mEq/L BUN 29 H (8-23) mg/dL Creatinine 1.06 (0.60-1.20) mg/dL Glucose 83 (70-105) mg/dL Calcium 8.7 (8.6-10.3) mg/dL Total Bilirubin 0.5 (0.3-1.0) mg/dL AST 16 (13-39) Units/L ALT 10 (7-52) Units/L Alkaline Phosphatase 67 (34-104) Units/L Albumin 3.2 L (3.5-5.7) g/dL Consult Discharge Plan - Plan Referrals: Yumiko Parra MD [Partnered Physician] - 08/02/18 10:45 am
[2018-07-26] MEDS: Ondansetron 4 MG/2 ML VIAL IVP PRN (12:05)
[2018-07-26] MEDS ORDERED: DIATRIZOATE MEGLUMINE, SODIUM 120 ML SOLUTION PO ONE (12:39)
[2018-07-26] MEDS: Pantoprazole 40 MG VIAL IVP SCH (16:20)
[2018-07-26] MEDS ORDERED: Acetaminophen IV 1,000 MG/100 ML INFUS..BTL IVPB ONE (23:03)
[2018-07-27 04:38] LABS: Basophils % 0.4 %; Eosinophils % 0.2 %; Hematocrit 39.2 % (35.3-44.9); Immature Granulocytes % 0.8 % (0-4); Lymphocytes # 1.5 K/mcL (0.6-4.6); Lymphocytes % 29.7 %; Mean Corpuscular HGB Conc 33.2 g/dL (31.6-35.5); Mean Corpuscular Hemoglobin 29.7 pg (28.0-33.3); Mean Corpuscular Volume 89.5 fL (83.0-100.0); Mean Platelet Volume 10.3 fL (9.4-12.4); Monocytes # 0.5 K/mcL (0.0-1.3); Monocytes % 10.6 %; Platelet Count 141 K/mcL (140-400); Red Blood Count 4.38 M/mcL (3.82-4.97); Red Cell Distribution Width 13.4 % (11.5-14.5); Segmented Neutrophils % 58.3 %
[2018-07-27 04:49] LABS: Calcium 9.3 mg/dL (8.6-10.3); Potassium 3.5 mEq/L (3.5-5.1)
[2018-07-27] MEDS: *HR* Heparin 5,000 UNIT/ML VIAL SQ SCH ×3 (04:59→21:24)
[2018-07-27] MEDS: Pantoprazole 40 MG VIAL IVP SCH ×2 (05:41→16:34)
--- NOTE | 2018-07-27 08:09 | AcuteCareSurgery Progress Note ---
Date of Encounter: 07/27/18 Time of Encounter: 08:09 - Assessment and Plan (1) Small bowel obstruction Current Visit: Yes Status: Acute She had a small bowel follow-through yesterday which was normal. We will go ahead and remove NG tube and start clear liquid diet today. If tolerates will then advance diet over the next 24 hours. Subjective Patient reports: other (She states she still has no abdominal pain. No nausea. NG tube still in place. Patient had copious amounts of bowel movements yesterday after the small bowel follow-through.) Objective Vital Signs - Last 8 Hours Temp Pulse Resp BP Pulse Ox 07/27/18 07:47 97.7 F 61 17 182/82 98 07/27/18 02:59 97.3 F L 74 16 151/81 97 Intake and Output 07/26/18 07/27/18 07/27/18 23:59 07:59 15:59 Intake Total 240 / 240 160 / 160 Output Total 185 / 185 425 / 425 Balance 55 / 55 -265 / -265 Intake: IV Fluids 100 / 100 Ofirmev 1,000 mg/100 ml 1,000 100 / 100 mg In 100 ml @ 400 mls/hr IVPB ONCE ONE Rx#:[id number] Oral 240 / 240 60 / 60 Output: Urine 200 / 200 Stool 100 / 100 Gastric Drainage 185 / 185 125 / 125 Left Nare 185 / 185 Other: Meal Dinner Percent of Meal Consumed 100% Stool Size Large Stool Consistency loose liquid Stool Color Brown Brown Weight 69.2 kg Blood Glucose* 103 81 Patient Weight 07/27/18 23:59 Weight 69.2 kg - General physical appearance well nourished, no distress - Respiratory normal expansion, normal respiratory effort - Abdomen Abdomen: Present: bowel sounds present, soft, tender (mild periumbilical tenderness noted.) - Labs 07/27/18 04:10 07/27/18 04:10 Diabetes panel 07/27/18 Range/Units 04:10 Sodium 146 H (136-145) mEq/L Potassium 3.5 (3.5-5.1) mEq/L Chloride 109 H (98-107) mEq/L Carbon Dioxide 24 (23-29) mEq/L BUN 34 H (8-23) mg/dL Creatinine 1.06 (0.60-1.20) mg/dL Glucose 88 (70-105) mg/dL Calcium 9.3 (8.6-10.3) mg/dL Calcium panel 07/27/18 Range/Units 04:10 Calcium 9.3 (8.6-10.3) mg/dL Pituitary panel 07/27/18 Range/Units 04:10 Sodium 146 H (136-145) mEq/L Potassium 3.5 (3.5-5.1) mEq/L Chloride 109 H (98-107) mEq/L Carbon Dioxide 24 (23-29) mEq/L BUN 34 H (8-23) mg/dL Creatinine 1.06 (0.60-1.20) mg/dL Glucose 88 (70-105) mg/dL Calcium 9.3 (8.6-10.3) mg/dL Adrenal panel 07/27/18 Range/Units 04:10 Sodium 146 H (136-145) mEq/L Potassium 3.5 (3.5-5.1) mEq/L Chloride 109 H (98-107) mEq/L Carbon Dioxide 24 (23-29) mEq/L BUN 34 H (8-23) mg/dL Creatinine 1.06 (0.60-1.20) mg/dL Glucose 88 (70-105) mg/dL Calcium 9.3 (8.6-10.3) mg/dL Consult Discharge Plan - Plan Referrals: Yumiko Parra MD [Partnered Physician] - 08/02/18 10:45 am
[2018-07-27] MEDS: Isosorbide MONOnitrate (24 HR) 30 MG TAB.ER.24H PO SCH (08:26)
[2018-07-27] MEDS: hydrALAZINE 25 MG TABLET PO SCH ×2 (08:26→21:23)
[2018-07-27] MEDS: D5% in Water 1,000 ML IVC SCH ×2 (10:10→21:23)
--- NOTE | 2018-07-27 14:36 | Internal Med Progress Note ---
Hospitalist Progress Note - Encounter Date of Encounter: 07/27/18 Time of Encounter: 14:34 - Subjective Interval History: Pt seen and examined in the room. NG was pulled out and pt started to eat. Currently on clear liquid. tolerated well. - Exam Vitals: Temp Pulse Resp BP Pulse Ox 98.0 F 75 16 129/66 96 07/27/18 11:52 07/27/18 11:52 07/27/18 11:52 07/27/18 11:52 07/27/18 11:52 Exam: General: Alert and oriented Skin:Normal color, no rash, no lesions. HEENT:EOM, pupils equal, round and reactive. Cardiovascular:Normal S1 & S2, no rubs, murmurs or gallops. No JVD. Pulse regular. Lungs:Normal breath sounds, no wheezes or crackles. Abdomen:Soft, non-tender, no rigidity. NG placed with dark drainage Extremities:No deformity, no edema or tenderness, no joint swelling or clubbing. Neurological:Normal cognition and motor skills. Pulses:Carotid and radial pulses normal +2. Rest of the physical exam is non contributory - Assessment and Plan (1) Partial small bowel obstruction Current Visit: Yes Status: Acute Assessment and Plan: Patient presents with intractable nausea and vomiting. CT scan shows mild to moderate dilatation of small bowel suspicious for partial obstruction likely related to adhesions. This in the setting of previous history of colon cancer status post colectomy. SMFT normal, diet started, tolerated. Surgery following. (2) Hyperkalemia Current Visit: Yes Status: Resolved (3) DVT prophylaxis Current Visit: Yes Status: Acute Assessment and Plan: subCutaneous heparin - Time Spent with Patient Total time spent is greater than 50% in coordination of care (as documented) at patient's floor/unit and/or counseling patient: Greater than 35 minutes Plan of Care Discussed with: patient Internal Medicine: Result - Labs CBC & Chem 7: 07/27/18 04:10 07/27/18 04:10 Labs: Short CBC 07/27/18 Range/Units 04:10 WBC 5.1 (4.3-11.1) K/mcL Hgb 13.0 (11.5-15.4) g/dL Hct 39.2 (35.3-44.9) % Plt Count 141 (140-400) K/mcL Neutrophils # 3.0 (1.6-8.9) K/mcL BMP 07/27/18 04:10 Sodium 146 H Potassium 3.5 Chloride 109 H Carbon Dioxide 24 BUN 34 H Creatinine 1.06 Glucose 88 Calcium 9.3 - ABG Interpretation ABG results: PT/INR, D-dimer PT 12.7 Seconds (9.4-12.1) H 07/26/18 05:27 Consult Discharge Plan - Plan Referrals: Yumiko Parra MD [Partnered Physician] - 08/02/18 10:45 am
[2018-07-27] MEDS: Ondansetron 4 MG/2 ML VIAL IVP PRN (21:30)
[2018-07-28] MEDS ORDERED: Acetaminophen 325 MG TABLET PO PRN (03:39)
[2018-07-28] MEDS: *HR* Heparin 5,000 UNIT/ML VIAL SQ SCH (05:32)
[2018-07-28] MEDS: D5% in Water 1,000 ML IVC SCH (06:06)
[2018-07-28] MEDS: Pantoprazole 40 MG VIAL IVP SCH (06:06)
[2018-07-28 06:21] LABS: Hematocrit 32.7 % (35.3-44.9); Mean Corpuscular HGB Conc 33.9 g/dL (31.6-35.5); Mean Corpuscular Hemoglobin 29.4 pg (28.0-33.3); Mean Corpuscular Volume 86.7 fL (83.0-100.0); Mean Platelet Volume 10.1 fL (9.4-12.4); Platelet Count 131 K/mcL (140-400); Red Blood Count 3.77 M/mcL (3.82-4.97); Red Cell Distribution Width 13.1 % (11.5-14.5)
[2018-07-28 06:27] LABS: Hemoglobin 11.1 g/dL (11.5-15.4)
[2018-07-28 07:46] LABS: BUN/Creatinine Ratio 24 (6-26); Blood Urea Nitrogen 25 mg/dL (8-23); Calcium 8.6 mg/dL (8.6-10.3); Carbon Dioxide 27 mEq/L (23-29); Chloride 101 mEq/L (98-107); Glucose 123 mg/dL (70-105); Osmolality,Calculated 290 (280-300); Potassium 2.7 mEq/L (3.5-5.1); Sodium 137 mEq/L (136-145); eGFR For Non-African Americans 50 (> 60)
[2018-07-28] MEDS: hydrALAZINE 25 MG TABLET PO SCH (08:25)
[2018-07-28] MEDS: Isosorbide MONOnitrate (24 HR) 30 MG TAB.ER.24H PO SCH (08:25)
--- NOTE | 2018-07-28 09:07 | AcuteCareSurgery Progress Note ---
Date of Encounter: 07/28/18 Time of Encounter: 07:50 - Assessment and Plan (1) Partial small bowel obstruction Current Visit: Yes Status: Acute The patient has high-grade partial bowel obstruction with a greater than 41 ratio between the proximal and distal small bowel. Although her symptoms are resolving with nasogastric tube drainage does not have any flatus. I have recommended Gastrografin small bowel follow-through to rule out complete obstruction into identify any surgical lesions. Clint Oneill MD FACS 07/28/2018 The patient underwent Gastrografin small bowel follow-through. There was no evidence of obstruction. There was prompt filling of the right colon in under an hour. The patient is now having bowel movements. There is no evidence of bowel obstruction. Surgery will sign off. Clint Oneill MD FACS Subjective Narrative: The patient is seen and evaluated on morning rounds with the acute care surgery team. Her nasogastric tube has been removed. Gastrografin small bowel follow-through demonstrates no evidence of small bowel obstruction. She is currently having bowel movements. Her abdominal pain is mild. no indication for surgery at this time. Surgery will sign off. Objective Vital Signs - Last 8 Hours Temp Pulse Resp BP Pulse Ox 07/28/18 07:16 98.2 F 60 16 149/74 95 07/28/18 02:51 98.4 F 60 16 114/62 95 Intake and Output 07/27/18 07/28/18 07/28/18 23:59 07:59 15:59 Intake Total 1240 / 1240 1000 / 1000 Output Total 700 / 700 Balance 540 / 540 1000 / 1000 Intake: IV Fluids 1000 / 1000 1000 / 1000 Dextrose 5% 1,000 ML @ 100 mls/ 1000 / 1000 1000 / 1000 hr IVC .Q10H [facility] Rx#:[id number] Oral 240 / 240 Output: Urine 350 / 350 Stool 350 / 350 Other: Stool Size Small Stool Consistency liquid Stool Characteristics Seedy Stool Color Brown Green Weight 66.2 kg Patient Weight 07/28/18 23:59 Weight 66.2 kg - General physical appearance well developed, well nourished, no distress, no pain - Respiratory normal expansion, normal respiratory effort, clear to percussion, clear to auscultation - Cardiovascular Cardiovascular exam: Present: RRR, no murmurs/rubs/gallops - Abdomen Abdomen: Present: bowel sounds present, soft, non tender - Neurologic normal coordination, normal sensation - Psychiatric oriented to time, oriented to person, oriented to place, speech is normal, memory intact - Labs 07/28/18 05:14 07/28/18 05:14 Diabetes panel 07/28/18 Range/Units 05:14 Sodium 137 (136-145) mEq/L Potassium 2.7 L (3.5-5.1) mEq/L Chloride 101 (98-107) mEq/L Carbon Dioxide 27 (23-29) mEq/L BUN 25 H (8-23) mg/dL Creatinine 1.04 (0.60-1.20) mg/dL Glucose 123 H (70-105) mg/dL Calcium 8.6 (8.6-10.3) mg/dL Calcium panel 07/28/18 Range/Units 05:14 Calcium 8.6 (8.6-10.3) mg/dL Pituitary panel 07/28/18 Range/Units 05:14 Sodium 137 (136-145) mEq/L Potassium 2.7 L (3.5-5.1) mEq/L Chloride 101 (98-107) mEq/L Carbon Dioxide 27 (23-29) mEq/L BUN 25 H (8-23) mg/dL Creatinine 1.04 (0.60-1.20) mg/dL Glucose 123 H (70-105) mg/dL Calcium 8.6 (8.6-10.3) mg/dL Adrenal panel 07/28/18 Range/Units 05:14 Sodium 137 (136-145) mEq/L Potassium 2.7 L (3.5-5.1) mEq/L Chloride 101 (98-107) mEq/L Carbon Dioxide 27 (23-29) mEq/L BUN 25 H (8-23) mg/dL Creatinine 1.04 (0.60-1.20) mg/dL Glucose 123 H (70-105) mg/dL Calcium 8.6 (8.6-10.3) mg/dL Consult Discharge Plan - Plan Referrals: Yumiko Parra MD [Partnered Physician] - 08/02/18 10:45 am
--- NOTE | 2018-07-28 10:06 | Electrocardiograph Report ---
[place] [id number] Test Date: 2018-07-24 Pat Name: Kiana Bolanos Department: [id number] Room: 3B43 Gender: F Compliance Advisor: : [id number] Requested By: Susie Smyth Order Number: [id number] Reading MD: Denys Amador Measurements Intervals [place] Rate: 84 P: NV: 151 QRS: -33 QRSD: 95 T: 55 QT: 402 QTc: 476 Interpretive Statements Atrial-paced rhythm Left axis deviation Anteroseptal infarct, old Electronically Signed On 07-28-2018 10:05:02 EDT by Denys Amador
[2018-07-28 10:54] VITALS: BP 114/62
--- NOTE | 2018-07-28 11:35 | Discharge Summary ---
- NOTES TO OUTPATIENT PROVIDER Notes to Outpatient Provider: Please check BMP tomorrow. Date of Encounter: 07/28/18 Time of Encounter: 11:29 - Discharge Diagnosis (1) Partial small bowel obstruction Priority: Primary Status: Resolved (2) Hyperkalemia Priority: Primary Status: Resolved (3) DVT prophylaxis Priority: Primary Status: Acute Hospital course: Ms. Bolanos is a 82 year old female with a past medical history of hypertension, hyperlipidemia, history of colon cancer, hypothyroidism, chronic lower extremity edema, chronic abdominal pain history of blood clots who presented to the ED with a chief complaint of nausea and vomiting which began yesterday. Patient reports vomiting approximately 10-20 times consisting of nonbloody nonbilious emesis. Patient denies any fever or chills, abdominal pain, numbness tingling or weakness. On arrival patient was afebrile, however noted to be hypertensive with a blood pressure of 213/86. Labs were notable only for hyperkalemia 5.8. CT scan of the belly showed mild to moderate dilatation of the small bowel suspicious for partial small bowel obstruction likely related to adhesions. Patient received fluids and antibiotics in the ED. General surgery was consulted and a NG tube was placed. Pt GI symptoms improved. a small bowel follow through on the 2nd hospital day was performed which showed resolution of small bowel obstruction. NG was removed and clear liquid diet was started. Pt tolerated well and diet advanced to full liquid. On the 3rd hospital day, Pt doing well, labs showed K 2.7, 80 meq kcl replaced. Pt is stable and ready to be discharged back to [facility]. Labs was suggested to repeat in am. Discharge discussed with: patient Time spent discussing smoking cessation with patient: more than 10 minutes - Time Spent with Patient Total time spent providing and/or coordinating discharge services: Time spent: Greater than 30 minutes - Discharge Medications Prescriptions: New Isosorbide MONOnitrate (24 HR) [Imdur] 90 mg PO DAILY tab.er.24h Continue Calcium Carbonate/Vitamin D3 [Calcium 600 + Vit D Tablet] 1 tab PO DAILY Ascorbate Calcium [Vitamin C] 500 mg PO BID Potassium Chloride [Klor-Con 10] 20 meq PO BID Losartan Potassium [Cozaar] 100 mg PO DAILY Pravastatin Sodium [Pravachol] 40 mg PO DAILY Fluticasone Propionate [Flovent Diskus] 50 mcg IH DAILY Omeprazole [PriLOSEC] 20 mg PO DAILY Levothyroxine [Synthroid] 75 mcg PO DAILY hydrALAZINE [HydrALAZINE] 25 mg PO BID cloNIDine HCl [CloNIDine HCl] 0.1 mg PO TID PRN PRN Reason: Hypertension Cranberry Fruit Concentrate [Cranberry] 450 mg PO QID Cyclosporine [Restasis Multidose] 1 drop BOTH EYES BID Fluticasone Propionate Nasal [Flonase] 1 spray NS DAILY Vitamin E 1,000 unit PO DAILY FentaNYL PATCH [Duragesic] 75 mcg TD Q72H 6 Days #2 patch.td72 HYDROmorphone [Dilaudid] 4 mg PO TID PRN 2 Days #6 tablet PRN Reason: Pain Discontinued Isosorbide MONOnitrate (24 HR) [Imdur] 30 mg PO DAILY Isosorbide MONOnitrate (24 HR) [Imdur] 60 mg PO DAILY Home Medications: Ascorbate Calcium [Vitamin C] 500 mg PO BID 12/24/16 [History] Calcium Carbonate/Vitamin D3 [Calcium 600 + Vit D Tablet] 1 tab PO DAILY 12/24/16 [History] Fluticasone Propionate [Flovent Diskus] 50 mcg IH DAILY 12/24/16 [History] Levothyroxine [Synthroid] 75 mcg PO DAILY 12/24/16 [History] Losartan Potassium [Cozaar] 100 mg PO DAILY 12/24/16 [History] Omeprazole [PriLOSEC] 20 mg PO DAILY 12/24/16 [History] Potassium Chloride [Klor-Con 10] 20 meq PO BID 12/24/16 [History] Pravastatin Sodium [Pravachol] 40 mg PO DAILY 12/24/16 [History] Cranberry Fruit Concentrate [Cranberry] 450 mg PO QID 07/25/18 [History] Cyclosporine [Restasis Multidose] 1 drop BOTH EYES BID 07/25/18 [History] Fluticasone Propionate Nasal [Flonase] 1 spray NS DAILY 07/25/18 [History] Vitamin E 1,000 unit PO DAILY 07/25/18 [History] cloNIDine HCl [CloNIDine HCl] 0.1 mg PO TID PRN 07/25/18 [History] hydrALAZINE [HydrALAZINE] 25 mg PO BID 07/25/18 [History] FentaNYL PATCH [Duragesic] 75 mcg TD Q72H 6 Days #2 patch.td72 07/28/18 [Rx] HYDROmorphone [Dilaudid] 4 mg PO TID PRN 2 Days #6 tablet 07/28/18 [Rx] Isosorbide MONOnitrate (24 HR) [Imdur] 90 mg PO DAILY tab.er.24h 07/28/18 [Rx] Allergies/Adverse Reactions: Allergy/AdvReac Type Severity Reaction Status Date / Time aspirin Allergy Nausea Verified 11/29/16 01:48 Erythromycin Base Allergy Rash Verified 11/29/16 01:48 Penicillins Allergy Redness of Verified 11/29/16 01:48 Skin propoxyphene [From Darvon] Allergy Hallucinati Verified 11/29/16 01:48 ng Sulfa (Sulfonamide Allergy Redness of Verified 11/29/16 01:48 Antibiotics) Skin Date of admission: 07/25/18 12:53 Primary care physician: PCP NONE Consults: 07/25/18 06:28 Consult to Surgery [CONS] Routine Consulting Provider: Surgery [facility] Reason for Consult: partial SBO Call Completed: Yes 07/25/18 09:21 Consult to Manufacturing Tech [CONS] Routine Reason for SW Consult: PATIENT FROM [facility] Anticipated date of discharge: 07/28/18 - Constitutional Vitals: Temp Pulse Resp BP Pulse Ox 97.4 F L 80 18 114/62 98 07/28/18 10:52 07/28/18 10:52 07/28/18 10:52 07/28/18 10:52 07/28/18 10:52 General appearance: Present: A&O X 3 Exam: General: Alert and oriented Skin:Normal color, no rash, no lesions. HEENT:EOM, pupils equal, round and reactive. Cardiovascular:Normal S1 & S2, no rubs, murmurs or gallops. No JVD. Pulse regular. Lungs:Normal breath sounds, no wheezes or crackles. Abdomen:Soft, non-tender, no rigidity. NG placed with dark drainage Extremities:No deformity, no edema or tenderness, no joint swelling or clubbing. Neurological:Normal cognition and motor skills. Pulses:Carotid and radial pulses normal +2. Rest of the physical exam is non contributory - Patient Status Disposition: Transfer SNF Condition: Fair Functional capacity at discharge: wheelchair bound Overall status at discharge: patient is progressing back to baseline - Discharge Instructions Follow Up With: Yumiko Parra MD [Partnered Physician] - 08/02/18 10:45 am - Diet and Activity Activity: increase activity as tolerated Diet: advance to your usual diet
--- NOTE | 2018-07-28 11:41 | Physician Discharge Referral ---
ExtendedCare Referral Info Transfer To: [facility] Provider in Charge after Transfer: Other Institutional Level of Care: Skilled - Diagnosis (1) Partial small bowel obstruction Priority: Primary Status: Resolved (2) Hyperkalemia Priority: Primary Status: Resolved (3) DVT prophylaxis Priority: Primary Status: Acute Prognosis: Fair Aware of Diagnosis: Patient Aware of Prognosis: Patient - Transfer Medications Prescriptions: FentaNYL PATCH [Duragesic] 75 mcg TD Q72H 6 Days #2 patch.td72 HYDROmorphone [Dilaudid] 4 mg PO TID PRN 2 Days #6 tablet PRN Reason: Pain Home Medications: Ascorbate Calcium [Vitamin C] 500 mg PO BID 12/24/16 [History] Calcium Carbonate/Vitamin D3 [Calcium 600 + Vit D Tablet] 1 tab PO DAILY 12/24/16 [History] Fluticasone Propionate [Flovent Diskus] 50 mcg IH DAILY 12/24/16 [History] Levothyroxine [Synthroid] 75 mcg PO DAILY 12/24/16 [History] Losartan Potassium [Cozaar] 100 mg PO DAILY 12/24/16 [History] Omeprazole [PriLOSEC] 20 mg PO DAILY 12/24/16 [History] Potassium Chloride [Klor-Con 10] 20 meq PO BID 12/24/16 [History] Pravastatin Sodium [Pravachol] 40 mg PO DAILY 12/24/16 [History] Cranberry Fruit Concentrate [Cranberry] 450 mg PO QID 07/25/18 [History] Cyclosporine [Restasis Multidose] 1 drop BOTH EYES BID 07/25/18 [History] Fluticasone Propionate Nasal [Flonase] 1 spray NS DAILY 07/25/18 [History] Vitamin E 1,000 unit PO DAILY 07/25/18 [History] cloNIDine HCl [CloNIDine HCl] 0.1 mg PO TID PRN 07/25/18 [History] hydrALAZINE [HydrALAZINE] 25 mg PO BID 07/25/18 [History] FentaNYL PATCH [Duragesic] 75 mcg TD Q72H 6 Days #2 patch.td72 07/28/18 [Rx] HYDROmorphone [Dilaudid] 4 mg PO TID PRN 2 Days #6 tablet 07/28/18 [Rx] Isosorbide MONOnitrate (24 HR) [Imdur] 90 mg PO DAILY tab.er.24h 07/28/18 [Rx] Allergies/Adverse Reactions: Allergy/AdvReac Type Severity Reaction Status Date / Time aspirin Allergy Nausea Verified 11/29/16 01:48 Erythromycin Base Allergy Rash Verified 11/29/16 01:48 Penicillins Allergy Redness of Verified 11/29/16 01:48 Skin propoxyphene [From Darvon] Allergy Hallucinati Verified 11/29/16 01:48 ng Sulfa (Sulfonamide Allergy Redness of Verified 11/29/16 01:48 Antibiotics) Skin - Respiratory Orders Smoking Cessation: Smoking cessation has been advised. For more information, call the [place] Tobacco Quit Line at 7-998-CKMWNOW. - Advance Directives Code Status: Full Code CERTIFICATION: I certify that the transfer of the above named patient to an Extended Care Facility is necessary for the continuing treatment of the diagnosis listed. The above information is true and accurate reflection of patient's current condition. Confidential - Redisclosure prohibited without a patient's written consent.
== END 2018-07-28 14:20 | DRG 390 ==
LOC: EMEROOARM 20:05 → 3BNU 20:05
PROVIDERS: ADMIT Internal Medicine; ATTEND Internal Medicine

== ENCOUNTER 2021-11-21 08:16 | Inpatient (IN) ==
[2021-11-21 10:20] LABS: Basophils # 0.1 K/mcL (0.0-0.2); Basophils % 1.3 %; Eosinophils # 0.1 K/mcL (0.0-0.6); Eosinophils % 1.3 %; Hematocrit 37.3 % (35.3-44.9); Immature Granulocytes % 0.4 % (0-4); Lymphocytes # 0.9 K/mcL (0.6-4.6); Lymphocytes % 18.7 %; Mean Corpuscular HGB Conc 32.2 g/dL (31.6-35.5); Mean Corpuscular Hemoglobin 30.1 pg (28.0-33.3); Mean Corpuscular Volume 93.5 fL (83.0-100.0); Mean Platelet Volume 8.9 fL (9.4-12.4); Monocytes # 0.4 K/mcL (0.0-1.3); Monocytes % 7.4 %; Neutrophils # 3.3 K/mcL (1.6-8.9); Platelet Count 139 K/mcL (140-400); Red Blood Count 3.99 M/mcL (3.82-4.97); Red Cell Distribution Width 13.5 % (11.5-14.5); Segmented Neutrophils % 70.9 %; White Blood Count 4.7 K/mcL (4.3-11.1)
[2021-11-21 10:30] LABS: INR 1.1; Prothrombin Time 11.9 Seconds (9.4-12.1)
[2021-11-21 10:33] LABS: Activated Partial Thrombo Time 43.1 Seconds (26.0-36.0)
[2021-11-21 11:10] LABS: Alanine Aminotransferase 14 Units/L (7-52); Albumin 3.7 g/dL (3.5-5.7); Alkaline Phosphatase 121 Units/L (34-104); Aspartate Amino Transferase 24 Units/L (13-39); BUN/Creatinine Ratio 19 (6-26); Blood Urea Nitrogen 23 mg/dL (8-23); Calcium 9.5 mg/dL (8.6-10.3); Carbon Dioxide 20 mEq/L (23-29); Chloride 111 mEq/L (98-107); Glucose 136 mg/dL (70-105); Osmolality,Calculated 288 (280-300); Potassium 4.3 mEq/L (3.5-5.1); Sodium 136 mEq/L (136-145); Troponin I < 0.03 ng/mL (< 0.04); eGFR For African Americans 52 (> 60); eGFR For Non-African Americans 43 (> 60)
[2021-11-21 11:24] LABS: Albumin/Globulin Ratio 1.1 (1.1-2.2); Bilirubin,Direct 0.1 mg/dL (0.0-0.2); Bilirubin,Indirect 0.5 mg/dL (0.0-1.0); Bilirubin,Total 0.6 mg/dL (0.3-1.0); Creatine Kinase 155 Units/L (30-223); Globulin 3.4 g/dL (2.4-3.5); Total Protein 7.1 g/dL (6.4-8.9)
[2021-11-21] MEDS ORDERED: Morphine Sulfate 2 MG/ML SYRINGE IVP ONE (11:40)
[2021-11-21] MEDS ORDERED: D5% in Water 1,000 ML IVC PRN (13:28)
[2021-11-21] MEDS ORDERED: Dextrose Gel 15 GM/37.5 ML TUBE PO PRN ×2 (13:28)
[2021-11-21] MEDS ORDERED: Melatonin 3 MG TABLET PO PRN (13:28)
[2021-11-21] MEDS ORDERED: Ondansetron 4 MG/2 ML VIAL IVP PRN (13:28)
[2021-11-21] MEDS ORDERED: Acetaminophen 325 MG TABLET PO PRN (13:28)
[2021-11-21] MEDS ORDERED: *HR* Dextrose 50 % in Water (Syg) 50 ML SYRINGE IVP PRN (13:28)
[2021-11-21] MEDS ORDERED: Naloxone 0.4 MG/ML INJ IVP PRN (13:28)
[2021-11-21] MEDS ORDERED: Ringers Solution, Lactated 1,000 ML IVC SCH (13:30)
[2021-11-21 15:51] LABS: Estimated Average Glucose 105 mg/dl; Hemoglobin A1C 5.3 %
[2021-11-21] MEDS: *HR* OxyCODONE Immed Rel 5 MG TABLET PO PRN (16:25)
[2021-11-21] MEDS: Insulin LISPRO 300 UNITS/3 ML VIAL SUBQ SCH (22:03)
[2021-11-22] MEDS: Insulin LISPRO 300 UNITS/3 ML VIAL SUBQ SCH ×4 (01:08→20:08)
[2021-11-22] MEDS: *HR* OxyCODONE Immed Rel 5 MG TABLET PO PRN ×2 (05:46→17:26)
[2021-11-22] MEDS ORDERED: Lidocaine -MPF 2% 5 ML VIAL ONE (07:29)
[2021-11-22] MEDS ORDERED: *HR* FentaNYL (PF) 100 MCG/2 ML VIAL ONE (07:29)
[2021-11-22] MEDS ORDERED: *HR* Propofol 200 MG/20 ML VIAL IVP ONE (07:29)
[2021-11-22] MEDS ORDERED: *HR* FentaNYL (PF) 100 MCG/2 ML VIAL IVP PRN (07:50)
[2021-11-22] MEDS ORDERED: Ondansetron 4 MG/2 ML VIAL ONE (08:48)
[2021-11-22] MEDS ORDERED: EPHEDrine 50 MG/ML VIAL ONE (08:55)
[2021-11-22] MEDS: hydrALAZINE 25 MG TABLET PO SCH ×3 (09:00→21:10)
[2021-11-22] MEDS: Isosorbide MONOnitrate (24 HR) 60 MG TAB.ER.24H PO SCH (11:45)
[2021-11-22] MEDS: CeFAZolin 2 GM/120 ML BAG IVPB SCH ×2 (17:26→23:32)
[2021-11-22] MEDS ORDERED: 0.9 % Sodium Chloride 500 ML IVC ONE (21:08)
[2021-11-22] MEDS: Cyclosporine [Restasis] 1 EACH Droperette OP SCH (21:10)
[2021-11-23] MEDS: Cyclosporine [Restasis] 1 EACH Droperette OP SCH (09:00)
[2021-11-23 10:39] LABS: Basophils % 0.3 %; Eosinophils % 0.2 %; Hematocrit 24.9 % (35.3-44.9); Hemoglobin 8.2 g/dL (11.5-15.4); Immature Granulocytes % 0.2 % (0-4); Lymphocytes # 1.6 K/mcL (0.6-4.6); Lymphocytes % 25.9 %; Mean Corpuscular HGB Conc 32.9 g/dL (31.6-35.5); Mean Corpuscular Hemoglobin 30.5 pg (28.0-33.3); Mean Corpuscular Volume 92.6 fL (83.0-100.0); Mean Platelet Volume 9.6 fL (9.4-12.4); Monocytes # 0.7 K/mcL (0.0-1.3); Monocytes % 10.5 %; Neutrophils # 3.9 K/mcL (1.6-8.9); Platelet Count 132 K/mcL (140-400); Red Blood Count 2.69 M/mcL (3.82-4.97); Segmented Neutrophils % 62.9 %; White Blood Count 6.2 K/mcL (4.3-11.1)
[2021-11-23] MEDS: Apixaban 2.5 MG TABLET PO SCH ×2 (10:48→22:29)
[2021-11-23] MEDS: Isosorbide MONOnitrate (24 HR) 60 MG TAB.ER.24H PO SCH (10:48)
[2021-11-23 10:58] LABS: Magnesium 1.9 mg/dL (1.6-2.6); Phosphorous 4.9 mg/dL (2.7-4.5); Potassium 4.7 mEq/L (3.5-5.1)
[2021-11-23] MEDS: Insulin LISPRO 300 UNITS/3 ML VIAL SUBQ SCH ×3 (12:41→22:30)
[2021-11-23] MEDS: Cyanocobalamin (B-12) 1,000 MCG/ML VIAL SQ SCH (16:06)
[2021-11-23] MEDS: Iron Sucrose Complex 250 MG in 0.9 % Sodium Chloride 250 ML IVPB SCH (16:06)
[2021-11-24 04:38] LABS: Calcium 8.6 mg/dL (8.6-10.3); Potassium 5.6 mEq/L (3.5-5.1)
[2021-11-24] MEDS: Insulin LISPRO 300 UNITS/3 ML VIAL SUBQ SCH ×4 (07:52→21:10)
[2021-11-24] MEDS ORDERED: Sodium Bicarbonate 150 MEQ in D5% in Water 1,000 ML IVC SCH (08:15)
[2021-11-24] MEDS: Cyanocobalamin (B-12) 1,000 MCG/ML VIAL SQ SCH (08:53)
[2021-11-24] MEDS: Apixaban 2.5 MG TABLET PO SCH (08:53)
[2021-11-24] MEDS: Isosorbide MONOnitrate (24 HR) 60 MG TAB.ER.24H PO SCH (08:53)
[2021-11-24] MEDS: Iron Sucrose Complex 250 MG in 0.9 % Sodium Chloride 250 ML IVPB SCH (10:02)
[2021-11-24 12:09] LABS: Basophils % 0.3 %; Eosinophils % 0.3 %; Hematocrit 18.4 % (35.3-44.9); Immature Granulocytes % 0.7 % (0-4); Lymphocytes # 0.6 K/mcL (0.6-4.6); Lymphocytes % 18.9 %; Mean Corpuscular HGB Conc 33.2 g/dL (31.6-35.5); Mean Corpuscular Hemoglobin 30.7 pg (28.0-33.3); Mean Corpuscular Volume 92.5 fL (83.0-100.0); Mean Platelet Volume 9.3 fL (9.4-12.4); Monocytes # 0.4 K/mcL (0.0-1.3); Monocytes % 11.9 %; Platelet Count 110 K/mcL (140-400); Red Blood Count 1.99 M/mcL (3.82-4.97); Red Cell Distribution Width 14.1 % (11.5-14.5); Segmented Neutrophils % 67.9 %
[2021-11-24 12:10] LABS: Hemoglobin 6.1 g/dL (11.5-15.4)
[2021-11-24] MEDS ORDERED: 0.9 % Sodium Chloride 250 ML IVC SCH (15:15)
[2021-11-24 16:13] LABS: Calcium 8.6 mg/dL (8.6-10.3); Potassium 4.3 mEq/L (3.5-5.1)
[2021-11-25 06:43] VITALS: BP 139/76; PULSE 76; TEMP 98; O2SAT 99
[2021-11-25 07:55] LABS: Eosinophils # 0.1 K/mcL (0.0-0.6); Hematocrit 24.2 % (35.3-44.9); Immature Granulocytes % 1.3 % (0-4); Lymphocytes # 0.9 K/mcL (0.6-4.6); Mean Corpuscular HGB Conc 33.5 g/dL (31.6-35.5); Mean Corpuscular Hemoglobin 30.6 pg (28.0-33.3); Mean Corpuscular Volume 91.3 fL (83.0-100.0); Mean Platelet Volume 9.6 fL (9.4-12.4); Monocytes # 0.4 K/mcL (0.0-1.3); Monocytes % 12.5 %; Neutrophils # 1.6 K/mcL (1.6-8.9); Platelet Count 133 K/mcL (140-400); Red Blood Count 2.65 M/mcL (3.82-4.97); Red Cell Distribution Width 13.8 % (11.5-14.5); Segmented Neutrophils % 53.2 %
[2021-11-25 07:58] LABS: Hemoglobin 8.1 g/dL (11.5-15.4)
[2021-11-25 08:17] LABS: Alanine Aminotransferase 3 Units/L (7-52); Albumin/Globulin Ratio 1.2 (1.1-2.2); Alkaline Phosphatase 84 Units/L (34-104); Aspartate Amino Transferase 17 Units/L (13-39); BUN/Creatinine Ratio 32 (6-26); Bilirubin,Total 0.5 mg/dL (0.3-1.0); Blood Urea Nitrogen 32 mg/dL (8-23); Calcium 8.6 mg/dL (8.6-10.3); Carbon Dioxide 30 mEq/L (23-29); Chloride 105 mEq/L (98-107); Globulin 2.6 g/dL (2.4-3.5); Glucose 123 mg/dL (70-105); Magnesium 1.7 mg/dL (1.6-2.6); Osmolality,Calculated 296 (280-300); Phosphorous 2.6 mg/dL (2.7-4.5); Potassium 3.7 mEq/L (3.5-5.1); Sodium 139 mEq/L (136-145); Total Protein 5.6 g/dL (6.4-8.9); eGFR For African Americans > 60 (> 60); eGFR For Non-African Americans 53 (> 60)
[2021-11-25] MEDS: Isosorbide MONOnitrate (24 HR) 60 MG TAB.ER.24H PO SCH (08:23)
[2021-11-25] MEDS: *HR* OxyCODONE Immed Rel 5 MG TABLET PO PRN ×2 (08:23→16:58)
[2021-11-25 08:26] LABS: Bilirubin,Direct 0.1 mg/dL (0.0-0.2); Bilirubin,Indirect 0.4 mg/dL (0.0-1.0)
[2021-11-25] MEDS: Insulin LISPRO 300 UNITS/3 ML VIAL SUBQ SCH ×3 (08:26→16:41)
[2021-11-25 13:35] LABS: Adenovirus Not Detected (Not Detect); Bordetella Pertussis Not Detected (Not Detect); Chlamydophila pneumoniae Not Detected (Not Detect); Coronavirus 229E Not Detected (Not Detect); Coronavirus HKU1 Not Detected (Not Detect); Coronavirus NL63 Not Detected (Not Detect); Coronavirus OC43 Not Detected (Not Detect); Human Metapneumovirus Not Detected (Not Detect); Human Rhinovirus/Enterovirus Not Detected (Not Detect); Influenza A Subtype 2009 H1 Not Detected (Not Detect); Influenza B Not Detected (Not Detect); Mycoplasma pneumoniae Not Detected (Not Detect); Parainfluenza Virus 1 Not Detected (Not Detect); Parainfluenza Virus 2 Not Detected (Not Detect); Parainfluenza Virus 3 Not Detected (Not Detect); Parainfluenza Virus 4 Not Detected (Not Detect); Respiratory Syncytial Virus Not Detected (Not Detect); SARS-CoV-2 Not Detected (Not Detect)
== END 2021-11-25 18:02 | DRG 481 ==
LOC: EMEROOARM 08:16 → 4WAOSI 08:16 → SUATTDRO 19:36
PROVIDERS: ADMIT Family Medicine; ATTEND Pharmacist